=== PATIENT | female | born 1970 | race Caucasian/White ===

== ENCOUNTER 2020-09-23 14:01 | Emergency (ER) | payer OTHER, SELFPAY ==
[2020-09-23 15:25] VITALS: BP 134/82; PULSE 94; RESP 16; TEMP 36.6; O2SAT 96; BMI 40.9
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
[2020-09-23 17:58] VITALS: BP 118/72; PULSE 86; RESP 16; TEMP 36.6; O2SAT 96
== END 2020-09-23 18:06 | disposition home or self-care (01) ==
PROVIDERS: Emergency Provider Emergency Medicine; PCP Internal Medicine
DX: M54.2 Cervicalgia (principal); M25.512 Pain in left shoulder; M25.511 Pain in right shoulder; Z79.899 Other long term (current) drug therapy
CPT/HCPCS: 73000; 73030; 99283; 99284